=== PATIENT | male | born 1950 | race Caucasian/White ===

== ENCOUNTER 2022-06-27 06:06 | Day surgery (SDC) | payer OTHER, BC ==
[2022-06-25 13:00] VITALS: BMI 24.7
[2022-06-27] MEDS ORDERED: MIDAZOLAM HCL 2 MG/2 ML SINGLE DOSE VIAL ONE (07:36)
[2022-06-27] MEDS ORDERED: ROPIVACAINE HCL 0.5% 30ML VIAL ONE (07:36)
[2022-06-27] MEDS ORDERED: DEXAMETHASONE SOD PHOSPHATE 10 MG/1 ML VIAL ONE (07:36)
[2022-06-27] MEDS ORDERED: PROPOFOL 40 ML ONE (07:57)
[2022-06-27] MEDS ORDERED: ONDANSETRON 4 MG/2 ML VIAL ONE (08:12)
[2022-06-27] MEDS ORDERED: ceFAZolin SODIUM 1 GM VIAL ONE (08:12)
[2022-06-27] MEDS ORDERED: KETOROLAC TROMETHAMINE 30 MG/1 ML VIAL ONE (08:12)
[2022-06-27] MEDS ORDERED: DEXAMETHASONE SOD PHOSPHATE 4 MG/1 ML VIAL ONE (08:12)
[2022-06-27] MEDS ORDERED: TRANEXAMIC ACID 1000 MG/10 ML VIAL ONE (08:17)
[2022-06-27] MEDS ORDERED: PROPOFOL 60 ML ONE (09:27)
[2022-06-27] MEDS ORDERED: EPINEPHrine 1:1,000 1,000 MCG/ML ML ONE (10:14)
[2022-06-27] MEDS ORDERED: ONDANSETRON 4 MG/2 ML VIAL IVPUSH PRN (11:09)
[2022-06-27] MEDS ORDERED: oxyCODONE HCL 5 MG TABLET PO PRN ×2 (11:09)
[2022-06-27] MEDS ORDERED: ACETAMINOPHEN 325 MG TABLET (FP) PO PRN (11:09)
[2022-06-27 11:29] VITALS: RESP 20; TEMP 97.2
[2022-06-27 12:15] VITALS: BP 138/74; PULSE 68
== END 2022-06-27 12:15 | disposition home or self-care (01) ==
LOC: FASU 06:06
PROVIDERS: ATTEND Orthopaedic Surgery Sports Medicine
PROC: 0LS34ZZ Reposition Right Upper Arm Tendon, Percutaneous Endoscopic Approach (ICD-10-PCS; principal; 2022-06-27 08:21)
PROC: 0RNJ4ZZ Release Right Shoulder Joint, Percutaneous Endoscopic Approach (ICD-10-PCS; 2022-06-27 08:21)
DX: M75.121 Complete rotator cuff tear or rupture of right shoulder, not specified as traumatic (principal); M75.41 Impingement syndrome of right shoulder; M19.011 Primary osteoarthritis, right shoulder
CPT/HCPCS: 94760; C1713; J1100

== ENCOUNTER 2025-03-27 06:33 | Observation (INO) | payer OTHER, BC ==
[2025-03-27 06:39] VITALS: BMI 24.7
[2025-03-27] MEDS: SODIUM CHLORIDE 0.9% 500 ML INFUS.BAG IV ONE ×2 (07:44→09:04)
[2025-03-27 08:05] LABS: ABSOLUTE IMMATURE GRANULOCYTES 0.02 x10^3/uL (0.0-0.031); BASOPHILS # 0.03 x10^3/uL (0.01-0.08); EOSINOPHIL % 1.7 % (0.8-7.0); EOSINOPHILS # 0.10 x10^3/uL (0.04-0.54); MCHC 33.3 g/dl (32.3-36.5); MEAN CELL VOLUME 89.1 fl (79.0-92.2); MEAN PLT VOLUME 10.1 fl (9.4-12.4); MONOCYTE # 0.43 x10^3/uL (0.30-0.82); MONOCYTE % 7.1 % (5.3-12.2); RDW 13.2 % (12.2-16.6)
[2025-03-27 08:19] LABS: INR 0.99 (0.83-1.09); PROTHROMBIN TIME (PATIENT) 11.0 SEC (9.7-13.0)
[2025-03-27 08:22] LABS: ACTIVATED PTT 26.6 SECONDS (25.2-36.5)
[2025-03-27 08:30] LABS: ALK PHOS 43.0 U/L (45-117); CO2 23.0 mmol/L (21-32); CREATININE 1.0 mg/dl (0.6-1.3); GLUCOSE,RANDOM 131.0 mg/dl (74-106); SGOT/AST 18.0 U/L (15-37); SGPT/ALT 11.0 U/L (7-52); TOT PROT 6.3 g/dl (6.4-8.2)
[2025-03-27 09:51] LABS: N-TERMINAL BNP 109.3 pg/ml (5-125)
[2025-03-27] MEDS ORDERED: ACETAMINOPHEN 325 MG TABLET (FP) ONE (09:57)
[2025-03-27] MEDS: ACETAMINOPHEN 325 MG TABLET (FP) PO ONE (10:02)
[2025-03-27] MEDS ORDERED: DOCUSATE SODIUM 100 MG CAPSULE (FP) PO PRN (20:53)
[2025-03-28] MEDS ORDERED: LORATADINE 10 MG TABLET PO PRN (04:50)
[2025-03-28 08:32] LABS: ABSOLUTE IMMATURE GRANULOCYTES 0.01 x10^3/uL (0.0-0.031); BASOPHILS # 0.04 x10^3/uL (0.01-0.08); EOSINOPHIL % 1.5 % (0.8-7.0); EOSINOPHILS # 0.12 x10^3/uL (0.04-0.54); MCHC 32.9 g/dl (32.3-36.5); MEAN CELL VOLUME 90.4 fl (79.0-92.2); MEAN PLT VOLUME 9.9 fl (9.4-12.4); MONOCYTE # 0.75 x10^3/uL (0.30-0.82); MONOCYTE % 9.6 % (5.3-12.2); RDW 13.3 % (12.2-16.6)
[2025-03-28 09:14] LABS: ALK PHOS 44.0 U/L (45-117); CO2 28.0 mmol/L (21-32); CREATININE 1.0 mg/dl (0.6-1.3); GLUCOSE,RANDOM 98.0 mg/dl (74-106); SGOT/AST 18.0 U/L (15-37); SGPT/ALT 11.0 U/L (7-52); TOT PROT 6.7 g/dl (6.4-8.2)
[2025-03-28] MEDS: CYANOCOBALAMIN 1,000 MCG TABLET (FP) PO SCH (09:19)
[2025-03-28] MEDS: FAMOTIDINE 20 MG TABLET PO SCH (09:19)
[2025-03-28] MEDS: LOSARTAN POTASSIUM 50 MG TABLET PO SCH (21:21)
[2025-03-29] MEDS: ACETAMINOPHEN 325 MG TABLET (FP) PO ONE (00:28)
[2025-03-29 06:47] VITALS: RESP 18
[2025-03-29 08:49] LABS: ALK PHOS 40.0 U/L (45-117); CO2 26.0 mmol/L (21-32); CREATININE 1.0 mg/dl (0.6-1.3); GLUCOSE,RANDOM 95.0 mg/dl (74-106); SGOT/AST 16.0 U/L (15-37); SGPT/ALT 9.0 U/L (7-52); TOT PROT 5.9 g/dl (6.4-8.2)
[2025-03-29 11:28] VITALS: BP 157/91; PULSE 58; TEMP 98
== END 2025-03-29 11:32 | disposition home or self-care (01) ==
LOC: FER 06:33 → FM/S 23:34
PROC: 3E0337Z Introduction of Electrolytic and Water Balance Substance into Peripheral Vein, Percutaneous Approach (ICD-10-PCS; principal; 2025-03-27)
DX: R00.1 Bradycardia, unspecified (principal); R53.1 Weakness; R82.2 Biliuria; I10 Essential (primary) hypertension; K21.9 Gastro-esophageal reflux disease without esophagitis; R01.1 Cardiac murmur, unspecified; C08.9 Malignant neoplasm of major salivary gland, unspecified
CPT/HCPCS: 36415; 70450-TC; 70496-TC; 70498-TC; 71046-TC-FY; 76705-TC; 80053; 82962; 83735; 83880; 84100; 84439; 84443; 84484; 85025; 85610; 85730; 93005; 93306-TC; 99285-25; G0378

== ENCOUNTER 2025-03-29 16:26 | Observation (INO) | payer OTHER, BC ==
[2025-03-29 16:47] VITALS: BMI 24.0
[2025-03-29] MEDS ORDERED: FAMOTIDINE 20 MG/50 ML IVPB 20 MG/50 ML MG IVPB ONE (17:17)
[2025-03-29] MEDS ORDERED: PANTOPRAZOLE 40 MG TABLET PO ONE (17:18)
[2025-03-29] MEDS: PANTOPRAZOLE 40 MG TABLET PO SCH (17:21)
[2025-03-29 20:19] VITALS: RESP 18
[2025-03-30 08:08] LABS: ABSOLUTE IMMATURE GRANULOCYTES 0.01 x10^3/uL (0.0-0.031); BASOPHILS # 0.03 x10^3/uL (0.01-0.08); EOSINOPHIL % 1.4 % (0.8-7.0); EOSINOPHILS # 0.11 x10^3/uL (0.04-0.54); MCHC 33.1 g/dl (32.3-36.5); MEAN CELL VOLUME 89.6 fl (79.0-92.2); MEAN PLT VOLUME 9.8 fl (9.4-12.4); MONOCYTE # 0.81 x10^3/uL (0.30-0.82); MONOCYTE % 10.2 % (5.3-12.2); RDW 13.2 % (12.2-16.6)
[2025-03-30 08:47] LABS: ALK PHOS 49.0 U/L (45-117); CO2 29.0 mmol/L (21-32); CREATININE 1.1 mg/dl (0.6-1.3); GLUCOSE,RANDOM 99.0 mg/dl (74-106); SGOT/AST 17.0 U/L (15-37); SGPT/ALT 11.0 U/L (7-52); TOT PROT 6.5 g/dl (6.4-8.2)
[2025-03-31 08:03] LABS: MCHC 33.2 g/dl (32.3-36.5); MEAN CELL VOLUME 89.1 fl (79.0-92.2); MEAN PLT VOLUME 9.7 fl (9.4-12.4); RDW 13.1 % (12.2-16.6)
[2025-03-31 09:01] LABS: CO2 27.0 mmol/L (21-32); CREATININE 1.0 mg/dl (0.6-1.3); GLUCOSE,RANDOM 88.0 mg/dl (74-106); LDL CHOLESTEROL (ONLY DFH) 109.0 mg/dL (5-100)
[2025-03-31] MEDS: LOSARTAN POTASSIUM 25 MG TABLET PO SCH (09:31)
[2025-03-31] MEDS: FAMOTIDINE 20 MG TABLET PO SCH (09:37)
[2025-03-31] MEDS ORDERED: MELATONIN 5 MG TABLETS PO PRN (22:52)
[2025-04-01 06:07] VITALS: PULSE 58; TEMP 98.4
[2025-04-01] MEDS: ACETAMINOPHEN 500 MG TABLET (FP) PO ONE (06:48)
[2025-04-01] MEDS: LOSARTAN POTASSIUM 50 MG TABLET PO SCH (09:28)
[2025-04-01] MEDS: ENOXAPARIN NA (PORCINE) 40 MG/0.4 ML DISP.SYRIN SQ SCH (09:30)
[2025-04-01 10:09] VITALS: BP 156/83
== END 2025-04-01 11:25 | disposition home or self-care (01) ==
LOC: FER 16:26 → FM/S 17:01
PROVIDERS: ATTEND Internal Medicine
DX: R00.1 Bradycardia, unspecified (principal)
CPT/HCPCS: 36415; 70551-TC; 78452-TC; 80048; 80053; 80061; 82533; 83735; 84100; 84484; 85025; 85027; 93005; 93017; 99285-25; A9502; G0378